=== PATIENT | male | born 2000 | race Caucasian/White ===

== ENCOUNTER 2019-01-22 18:10 | Emergency (ER) | payer OTHER ==
[~2019-01-22] VITALS: Ht 175.3 cm; Wt 63.1 kg
[2019-01-22] MEDS ORDERED: ONDA4TAB6 PO (18:18)
[2019-01-22] MEDS ORDERED: ACET1TAB55 PO (18:18)
[2019-01-22] MEDS ORDERED: METOCLOPRAMIDE INJ 10MG/2ML VIAL (J2765) IV ONE (18:45)
[2019-01-22] MEDS ORDERED: NS 1,000 ML IV ONE (18:45)
[2019-01-22 19:14] LABS: BASO # 0.1 10^3/uL (0.0-0.2); BASO % 0.8 % (0.0-1.0); EOS # 0.2 10^3/uL (0.0-0.50); EOS % 3.2 % (0.0-3.0); HEMATOCRIT 48.5 % (42.0-52.0); HEMOGLOBIN 16.5 g/dl (13.5-17.5); LYMPH # 2.2 10^3/uL (1.5-6.5); MEAN CORPUSCULAR HEMOGLOBIN 28.5 pg (27.0-33.0); MEAN CORPUSCULAR VOLUME 83.8 fl (80.0-96.0); MONO # 0.7 10^3/uL (0.0-0.8); MONO % 9.5 % (0.0-5.0); NEUTROPHILS # 4.4 10^3/uL (1.8-7.7); NEUTROPHILS % 57.4 % (36.0-66.0); PLATELET COUNT, AUTOMATED 353 10^3/uL (150-450); RED BLOOD COUNT 5.79 10^6/uL (4.30-6.10); WHITE BLOOD COUNT 7.6 10^3/uL (4.0-10.0)
[2019-01-22 19:35] LABS: ALBUMIN 4.5 GM/DL (3.2-5.2); ALT/SGPT 21 U/L (12-78); AMYLASE 31 U/L (25-115); BILIRUBIN,DIRECT 0.3 MG/DL (0.0-0.2); BILIRUBIN,TOTAL 1.6 MG/DL (0.2-1.0); BLOOD UREA NITROGEN 12 MG/DL (7-18); CALCIUM LEVEL 8.6 MG/DL (8.5-10.1); CARBON DIOXIDE LEVEL 28 MEQ/L (21-32); CHLORIDE LEVEL 105 MEQ/L (98-107); CREATININE FOR GFR 1.04 MG/DL (0.70-1.30); GLUCOSE, FASTING 99 MG/DL (70-100); LIPASE 83 U/L (73-393); POTASSIUM SERUM 3.8 MEQ/L (3.5-5.1); SODIUM LEVEL 137 MEQ/L (136-145); TOTAL PROTEIN 8.1 GM/DL (6.4-8.2)
[2019-01-22] MEDS ORDERED: PANTOPRAZOLE 40MG INJ (PROTONIX) (C9113) IV ONE (20:30)
--- NOTE | 2019-01-22 21:37 | REPVR ---
EXAM: US Abdomen Limited, Right Upper Quadrant EXAM DATE/TIME: 01/22/19 (8:56pm) CLINICAL HISTORY: 18 year old male with epigastric pain and vomiting for 1 day. Elevated bilirubin level. TECHNIQUE: Imaging protocol: Real-time ultrasound of the abdomen with image documentation. Examination was focused on the right upper quadrant. COMPARISON: No relevant prior studies available. FINDINGS: The liver is normal in size (17.6 cm length) and texture. The gallbladder has normal wall thickness (1.6 mm), with no stones nor sludge seen. No pericholecystic fluid is appreciated. The sonographic Hunter's sign is reported to be (-). The CBD is not dilated (2.9 mm diameter). The pancreas appears unremarkable. The right kidney measures 11.7 cm in length, with no hydronephrosis appreciated. No ascites is seen. IMPRESSION: Unremarkable sonography of the RUQ area. No gallstones are appreciated. No biliary dilatation is evident. No abnormal fluid collections are evident. Electronically signed by: Katarzyna Petersen On 01/22/2019 21:37:13 PM
[2019-01-22 22:18] VITALS: BP 154/86
== END 2019-01-22 22:21 | disposition home or self-care (01) ==
LOC: M ED 18:10
DX: R10.13 Epigastric pain (principal)
CPT/HCPCS: 76705; 80048; 80076; 82150; 83690; 85025; 96374; 96375; 99284; C9113; J2765

== ENCOUNTER → 2020-10-11 | Outpatient (CLI) | payer SELFPAY ==
[~2020-10-11] MED LIST: ACET1TAB55 PO; ONDA4TAB6 PO
== END ==
LOC: M LABSMTC 12:12
PROVIDERS: ATTEND Pediatrics
DX: Z20.822 Contact with and (suspected) exposure to COVID-19 (principal)

== ENCOUNTER → 2020-10-18 | Outpatient (CLI) | payer SELFPAY | LOC: M LABSMTC 11:02 | PROVIDERS: ATTEND Pediatrics | DX: Z20.822 Contact with and (suspected) exposure to COVID-19 (principal) ==

== ENCOUNTER 2021-10-17 04:33 | Emergency (ER) | payer OTHER, SELFPAY ==
[~2021-10-17] VITALS: Ht 172.7 cm; Wt 62.6 kg
[2021-10-17 04:34] VITALS: BP 137/90
[2021-10-17] MEDS ORDERED: PROPARACAINE 0.5% OPHTH SOL 15ML OU ONE (06:15)
[2021-10-17] MEDS ORDERED: FLUORESCEIN OPHTH 1 MG STRIP OU ONE (06:15)
[2021-10-17] MEDS ORDERED: POLYSOL OP (07:05)
== END 2021-10-17 07:11 | disposition home or self-care (01) ==
LOC: M ED 04:33
DX: T15.02XA Foreign body in cornea, left eye, initial encounter (principal); W26.8XXA Contact with other sharp object(s), not elsewhere classified, initial encounter; Y92.9 Unspecified place or not applicable; Y93.9 Activity, unspecified; Y99.9 Unspecified external cause status

== ENCOUNTER 2024-12-10 23:07 | Emergency (ER) | payer OTHER ==
[~2024-12-10] VITALS: Ht 175.3 cm; Wt 60.0 kg
[~2024-12-10 23:07] MED LIST changes: +ONDA-282 PO; -ONDA4TAB6 PO; +POLYSOL OP
[2024-12-10 23:11] VITALS: BP 133/78; TEMP 101; O2SAT 98
[2024-12-11] MEDS: NS (Normal Saline) 0.9% 1,000 ML IV ONE (00:15)
[2024-12-11] MEDS: KETOROLAC 30 MG/ML 1ML VIAL IV ONE (00:16)
[2024-12-11] MEDS: ONDANSETRON 4MG 2ML VIAL IV ONE (00:16)
[2024-12-11] MEDS ORDERED: ONDA-282 PO (02:12)
== END 2024-12-11 02:35 | disposition home or self-care (01) ==
LOC: M ED 23:07
DX: K52.9 Noninfective gastroenteritis and colitis, unspecified (principal); F10.10 Alcohol abuse, uncomplicated; Z79.83 Long term (current) use of bisphosphonates
CPT/HCPCS: 96374; 99281; J1885; J2405